=== PATIENT | female | born 1965 | race Two or more races ===

== ENCOUNTER 2021-05-28 09:39 | Outpatient (REF) | payer OTHER, SELFPAY ==
--- NOTE | ~2021-05-28 | XR_ITS ---
EXAMINATION: XR PELVIS CLINICAL INFORMATION: Hip pain COMPARISON: None TECHNIQUE: AP view of the pelvis. FINDINGS: There is prominent sclerosis with intermingled lucencies in the right femoral head, with undulation and depression of the femoral head articular surface. The findings suggestive of femoral head fracture, differential consideration include sequela of trauma, avascular necrosis with subchondral fracture. There is mild to moderate right hip arthritis. Left hip joint space is maintained. Bowel gas partially obscures the pelvic bones. In the visualized pelvic bones, no acute fractures are seen. Surgical clips noted in the abdomen or pelvis. No diastases of the SI joints. Bones are osteopenic. XR/XR pelvis 1-2V IMPRESSION: 1. Findings in the femoral head, indicative of a femoral head fracture, differential consideration include sequela of trauma, avascular necrosis with subchondral fracture. Consider further evaluation with MRI. 2. Mild to moderate right hip arthritis.
== END 2021-05-28 09:40 | disposition home or self-care (01) ==
LOC: HO.HOSX 09:39
PROVIDERS: Visit Provider Orthopaedic Surgery
DX: M87.051 Idiopathic aseptic necrosis of right femur (principal)
CPT/HCPCS: 72170; 99202

== ENCOUNTER → 2021-07-28 09:13 | Outpatient (BNVA) | payer OTHER, SELFPAY | PROVIDERS: PCP Nurse Practitioner Family; Visit Provider Orthopaedic Surgery | DX: Z13.89 Encounter for screening for other disorder (principal) ==

== ENCOUNTER → 2021-08-20 09:48 | Outpatient (BNVA) | payer OTHER, SELFPAY | PROVIDERS: PCP Family Medicine; Visit Provider Physician Assistant | DX: M87.051 Idiopathic aseptic necrosis of right femur (principal) | CPT/HCPCS: 99212 ==

== ENCOUNTER 2021-08-26 06:12 | Inpatient (IN) | payer OTHER, SELFPAY ==
--- NOTE | 2021-08-17 | ECG_ITS ---
Test Reason : PREOP Blood Pressure : / mmHG Vent. Rate : 095 BPM Atrial Rate : 095 BPM P-R Int : 154 ms QRS Dur : 072 ms QT Int : 342 ms P-R-T Axes : 044 011 053 degrees QTc Int : 429 ms Normal sinus rhythm Possible Left atrial enlargement Possible Anterior infarct , age undetermined Abnormal ECG No previous ECGs available Referred By: Shital Husain Electronically Signed By:NASIR MALONEY MD
[2021-08-17 12:37] VITALS: BP 113/70; PULSE 107; RESP 16; O2SAT 95; BMI 20.1
--- NOTE | 2021-08-17 13:03 | HO.ANESPROP2 ---
Documented by User: Shital Husain NP 08/17/21 13:58 HPI - Anesthesia Eval Consult details Narrative: 55yo F for Right Hip Total Replacement Chronic opioids Prednisone 5mg daily for RA PMFSH Active Problems Active Problems: All Active Problems (Updated 08/17/21 @ 12:20 by Jayleen Bustos RN) Avascular necrosis of bone of right hip (Acute) Past Medical History Medical History (Updated 08/17/21 @ 12:20 by Jayleen Bustos RN) Chronic pain Compression fracture of spine Depression Fibromyalgia History of latent tuberculosis Hx of hypercalcemia Hypertension Immunosuppression Interstitial lung disease Low back pain Lower extremity pain Lung nodule Migraines KAMALA (obstructive sleep apnea) Osteoporosis Positive PPD, treated Prediabetes Rheumatoid arthritis Smoker Thyroid nodule Family History Family history of problems with anesthesia: No Surgical History Surgical History (Updated 08/17/21 @ 13:34 by Jayleen Bustos RN) History of cholecystectomy Hx of colonoscopy Hx of foot surgery Hx of hysterectomy History of Problems with Anesthesia: No Social History Social History Are you a primary resident care manager to a significant other at home: No Do you presently have visiting nurse or other home services: Yes (2 [employer] - 4 hours days and 6 hours nights) Patient Tobacco Use Status: Current everyday Tobacco user Tobacco use type: Cigarette Cigarettes Per Day: 11 Years Smoked: 25 Patient Interested in Nicotine Replacement: Yes Patient Given Instructions on How to Stop Smoking: Yes Date Education Initiated: 08/17/21 Second Hand Smoke Exposure: No Use of substances other than those prescribed or required for medical reasons: No Have you been hit, kicked, punched, or otherwise hurt by someone within the past year? If so, by whom?: No Spiritual Healthcare Practices: none Yazidism Healthcare Practices: none Cultural Healthcare Practices: none Are you DNR?: No Advance Directives: No Advance Directives Information Provided: Yes Advance Directives on File: No Recently lost weight without trying: Yes How much weight loss: 34pounds or more Eating poorly because of decreased appetite: Yes Nutrition screen score: 7 Patient : No Narrative Narrative: No recent illness No chest pain. Reports occassional feelings of SOB with sleep. (Has KAMALA but does not use CPAP anymore) Meds Allergies Allergy/AdvReac Type Severity Reaction Status Date / Time Penicillins Allergy Intermediate Rash Verified 08/17/21 12:37 adhesive bandage Allergy Intermediate Rash Uncoded 08/17/21 12:37 latex Allergy Intermediate Rash Uncoded 08/17/21 12:37 Home Medications Medication Instructions Recorded Confirmed Last Taken Type aspirin 81 mg tablet,delayed 81 mg PO DAILY 05/28/21 08/17/21 Unknown History release atorvastatin 40 mg tablet (Lipitor) 40 mg PO DAILY 05/28/21 08/17/21 Unknown History docusate sodium 100 mg capsule 100 mg PO BID 05/28/21 08/17/21 Unknown History (Colace) fexofenadine 180 mg tablet 180 mg PO DAILY 05/28/21 08/17/21 Unknown History oxycodone 15 mg tablet,crush 15 mg PO Q12H 05/28/21 08/17/21 Unknown History resistant,extended release 12 hr (OxyContin) quetiapine 100 mg tablet (Seroquel) 100 mg PO DAILY 05/28/21 08/26/21 08/26/21 History sennosides 8.6 mg capsule (senna) 8.6 mg PO BID 05/28/21 08/17/21 Unknown History oxycodone 5 mg tablet 5 mg PO DAILY PRN 07/28/21 08/17/21 Unknown History albuterol sulfate 1 vial INHALATION Q6H PRN 08/17/21 08/17/21 Unknown History calcium carbonate 600 mg-vitamin 1 tab PO BID 08/17/21 08/17/21 Unknown History D3 10 mcg (400 unit) tablet dronabinol 2.5 mg capsule 2.5 mg PO BID 08/17/21 08/17/21 Unknown History fluticasone propionate 50 1 spray INTRANASAL BID 08/17/21 08/17/21 Unknown History mcg/actuation nasal spray,suspension gabapentin 300 mg capsule 300 mg PO TID 08/17/21 08/17/21 Unknown History lidocaine 5 % topical ointment TOPICAL TID 08/17/21 Unknown History mirtazapine 15 mg tablet (Remeron) 15 mg PO DAILY 08/17/21 08/17/21 Unknown History nabumetone 500 mg tablet (Relafen) 500 mg PO BID 08/17/21 08/17/21 Unknown History prednisone 5 mg tablet 1 tab PO DAILY 08/17/21 08/17/21 Unknown History Exam Exam Date and Time: August 17, 2021 1303 Height,Weight and Vital Signs: Height 5 ft Weight 46.8 kg Last Vital Signs Pulse 107 H 08/17/21 12:37 Resp 16 08/17/21 12:37 BP 113/70 08/17/21 12:37 Pulse Ox 95 08/17/21 12:37 Airway Mallampati Class: II TM Dist: >3cm Neck ROM: Full Loose/Missing/Broken Teeth: No (#7 had root canal but stable) Heart: RRR Lungs: CTAB Assessment and Plan Assessment Anesthesia Assessment: Anesthesia Plan Discussed, Smoking Cess. Discussed and PAT Visit Final Anesthetic Review Family History of Problems with Anesthesia: No History of Problems with Anesthesia: No Documented by User: Christine Pagan MD 08/26/21 07:38 [facility] Past Medical History Medical History (Updated 08/17/21 @ 12:20 by Jayleen Bustos, JOSE ELIAS) Chronic pain Compression fracture of spine Depression Fibromyalgia History of latent tuberculosis Hx of hypercalcemia Hypertension Immunosuppression Interstitial lung disease Low back pain Lower extremity pain Lung nodule Migraines KAMALA (obstructive sleep apnea) Osteoporosis Positive PPD, treated Prediabetes Rheumatoid arthritis Smoker Thyroid nodule Surgical History Surgical History (Updated 08/17/21 @ 13:34 by Jayleen Bustos, RN) History of cholecystectomy Hx of colonoscopy Hx of foot surgery Hx of hysterectomy Social History Social History Are you a primary resident care manager to a significant other at home: No Do you presently have visiting nurse or other home services: Yes (2 [employer] - 4 hours days and 6 hours nights) Patient Tobacco Use Status: Current everyday Tobacco user Tobacco use type: Cigarette Cigarettes Per Day: 11 Years Smoked: 25 Patient Interested in Nicotine Replacement: Yes Patient Given Instructions on How to Stop Smoking: Yes Date Education Initiated: 08/17/21 Second Hand Smoke Exposure: No Use of substances other than those prescribed or required for medical reasons: No Have you been hit, kicked, punched, or otherwise hurt by someone within the past year? If so, by whom?: No Spiritual Healthcare Practices: none Yazidism Healthcare Practices: none Cultural Healthcare Practices: none Are you DNR?: No Advance Directives: No Advance Directives Information Provided: Yes Advance Directives on File: No Recently lost weight without trying: Yes How much weight loss: 34pounds or more Eating poorly because of decreased appetite: Yes Nutrition screen score: 7 Patient : No Meds Allergies Allergy/AdvReac Type Severity Reaction Status Date / Time Penicillins Allergy Intermediate Rash Verified 08/17/21 12:37 adhesive bandage Allergy Intermediate Rash Uncoded 08/17/21 12:37 latex Allergy Intermediate Rash Uncoded 08/17/21 12:37 Home Medications Medication Instructions Recorded Confirmed Last Taken Type aspirin 81 mg tablet,delayed 81 mg PO DAILY 05/28/21 08/17/21 Unknown History release atorvastatin 40 mg tablet (Lipitor) 40 mg PO DAILY 05/28/21 08/17/21 Unknown History docusate sodium 100 mg capsule 100 mg PO BID 05/28/21 08/17/21 Unknown History (Colace) fexofenadine 180 mg tablet 180 mg PO DAILY 05/28/21 08/17/21 Unknown History oxycodone 15 mg tablet,crush 15 mg PO Q12H 05/28/21 08/17/21 Unknown History resistant,extended release 12 hr (OxyContin) quetiapine 100 mg tablet (Seroquel) 100 mg PO DAILY 05/28/21 08/26/21 08/26/21 History sennosides 8.6 mg capsule (senna) 8.6 mg PO BID 05/28/21 08/17/21 Unknown History oxycodone 5 mg tablet 5 mg PO DAILY PRN 07/28/21 08/17/21 Unknown History albuterol sulfate 1 vial INHALATION Q6H PRN 08/17/21 08/17/21 Unknown History calcium carbonate 600 mg-vitamin 1 tab PO BID 08/17/21 08/17/21 Unknown History D3 10 mcg (400 unit) tablet dronabinol 2.5 mg capsule 2.5 mg PO BID 08/17/21 08/17/21 Unknown History fluticasone propionate 50 1 spray INTRANASAL BID 08/17/21 08/17/21 Unknown History mcg/actuation nasal spray,suspension gabapentin 300 mg capsule 300 mg PO TID 08/17/21 08/17/21 Unknown History lidocaine 5 % topical ointment TOPICAL TID 08/17/21 Unknown History mirtazapine 15 mg tablet (Remeron) 15 mg PO DAILY 08/17/21 08/17/21 Unknown History nabumetone 500 mg tablet (Relafen) 500 mg PO BID 08/17/21 08/17/21 Unknown History prednisone 5 mg tablet 1 tab PO DAILY 08/17/21 08/17/21 Unknown History Assessment and Plan Final Anesthetic Review NPO: Yes ASA Class: III Final Preanesthetic Review: No Changes in Pt Med Stat, Meds/Allgs Chart Reviewed, Consent Obtained/Reviewed and Anes Risks/Benef Reviewed Patient Risk: Intermediate Procedure Risk: Intermediate Anesthetic Plan Anesthetic Plan: GA Disposition: Standard PACU
[2021-08-17 14:05] LABS: Hemoglobin 14.6 g/dl (12.0-16.0); Mean Corpuscular HGB Conc 31.1 g/dl (31.0-35.0); Mean Corpuscular Hemoglobin 27.6 pg (27.0-33.0); Mean Corpuscular Volume 88.8 fL (80.0-98.0); Mean Platelet Volume 10.7 fL (9.4-12.3); Platelet Count 228 X10*3/uL (160-400); Red Blood Count 5.29 X10*6/uL (4.20-5.50); Red Cell Distribution Width 14.6 % (11.0-16.0); White Blood Count 12.9 X10*3/uL (4.8-10.8)
[2021-08-17 14:37] LABS: Anion Gap 13 (12-20); Blood Urea Nitrogen 7 mg/dL (9-16); Calcium 10.6 mg/dL (8.4-10.2); Carbon Dioxide 26 mmol/L (22-29); Chloride 106 mmol/L (96-108); Creatinine Clr Calc Pharmacy 75.7; Estimated Glomerular Filt Rate > 60; Glucose Random 141 mg/dL (60-115); Potassium 4.6 mmol/L (3.3-5.1); Sodium 140 mmol/L (135-145)
[2021-08-17 15:35] LABS: MRSA Nasal PCR NEGATIVE (Negative); SA Nasal PCR NEGATIVE (Negative)
[2021-08-26] VITALS (15 sets, daily range): BP systolic 83–139; BP diastolic 55–90; PULSE 74–100; RESP 8–18; TEMP 36–37.4; O2SAT 90–100; BMI 21.1
--- NOTE | ~2021-08-26 | XR_ITS ---
EXAMINATION: XR RIGHT HIP CLINICAL INFORMATION: Right total hip arthroplasty COMPARISON: May 28, 2021 TECHNIQUE: AP view of the right hip FINDINGS: Patient is status post right total hip arthroplasty with some gas within the soft tissues. The acetabular and femoral components appear in good position on this single view. No acute fracture or dislocation is evident. XR/XR pelvis 1-2V IMPRESSION: Satisfactory single view of the right hip status post right hip total arthroplasty.
[2021-08-26 06:46] LABS: COVID-19 Test Negative (Negative)
[2021-08-26] MEDS: vancomycin HCL 1,000 MG in 0.9 % Sodium Chloride 250 ML 270 MG IV ×2 (07:19→20:11)
[2021-08-26] MEDS: Lactated Ringers 1,000 ML 100 ML IVCONT ×3 (07:19→23:14)
--- NOTE | 2021-08-26 07:31 | MHC.SHP ---
Pre-Procedural Eval Section A Date of Service: 08/26/21 The patient is an INPATIENT: No Changes since office visit: Yes Patient answered all questions; No Cold of Flu in the past 2 weeks, No New Medical Problems and No Changes in Medication The History & Physical has been completed within 30 days and I have reviewed it.: Yes Section B Chief Complaint: RTHA Allergies: Allergies Allergy/AdvReac Type Severity Reaction Status Date / Time Penicillins Allergy Intermediate Rash Verified 08/17/21 12:37 adhesive bandage Allergy Intermediate Rash Uncoded 08/17/21 12:37 latex Allergy Intermediate Rash Uncoded 08/17/21 12:37 Plan I have reviewed the history and physical and performed a pertinent physical examination on my patient. No changes have occurred unless specified.
--- NOTE | 2021-08-26 09:34 | PM.OP ---
Brief Operative Note Date of Service: 08/26/21 Pre-op diagnosis: Right hip AVN Post-op diagnosis: same Procedure: Righht TO Surgeon: Thomas Reilly MD Anesthesia: GETA and local Was an Patient Relations Coordinator used for this Procedure?: Yes Patient Relations Coordinator: Chelle Carranza Estimated blood loss (mL): 300 Tourniquet time (min): 0 IV fluids (mL): 1,000 Pathology: other Condition: stable Disposition: PACU
--- NOTE | 2021-08-26 12:04 | PHA.MEDREC ---
Pharmacy Consult ? Medication Reconciliation Pharmacy has reviewed the medication reconciliation compeleted by nursing. Rima Thompson, JefD
[2021-08-26] MEDS: oxyCODONE HCl Immed Release 5 MG TABLET 10 MG PO ×3 (13:18→23:18)
[2021-08-26 13:47] LABS: Basophils Percent Auto 0.3 % (0-2); Eosinophils Percent Auto 0.2 % (0-4); Hematocrit 36.5 % (37.0-47.0); Hemoglobin 11.3 g/dl (12.0-16.0); Imm Gran Abs Auto 0.06 X10*3/uL (0.00-0.03); Imm Gran Pct Auto 0.5 % (0.0-0.4); Lymphocytes Absolute Auto 0.7 X10*3/uL (1.2-4.9); Lymphocytes Percent Auto 6.3 % (20-40); MANUAL DIFF FLAG SCAN; Mean Corpuscular Hemoglobin 28.1 pg (27.0-33.0); Mean Corpuscular Volume 90.8 fL (80.0-98.0); Mean Platelet Volume 10.4 fL (9.4-12.3); Monocytes Absolute Auto 0.3 X10*3/uL (0.1-1.2); Monocytes Percent Auto 2.2 % (2-11); Neutrophils Absolute Auto 10.1 x10*3/uL (2.0-8.3); Neutrophils Percent Auto 90.5 % (45-73); Platelet Count 184 X10*3/uL (160-400); Red Blood Count 4.02 X10*6/uL (4.20-5.50); Red Cell Distribution Width 14.8 % (11.0-16.0); SCAN SMEAR FLAG 1; White Blood Count 11.2 X10*3/uL (4.8-10.8)
--- NOTE | 2021-08-26 14:07 | PM.IMCN ---
History of Present Illness Data of Consult Service Date: 08/26/21 Primary Care Provider: Unknown Physician HPI Reason for consult: RA 56F admitted for elective right total hip arthroplasty. Patient has history of rheumatoid arthritis on chronic prednisone. She reports feeling well post surgery, denies chest pain, shortness of breath, fever, chills. Review of Systems Review of Systems: Yes all other systems are reviewed and are negative [facility] Medical History Chronic pain Compression fracture of spine Depression Fibromyalgia History of latent tuberculosis Hx of hypercalcemia Hypertension Immunosuppression Interstitial lung disease Low back pain Lower extremity pain Lung nodule Migraines KAMALA (obstructive sleep apnea) Osteoporosis Positive PPD, treated Prediabetes Rheumatoid arthritis Smoker Thyroid nodule Family History Other No family history of cardiovascular disease Surgical History History of cholecystectomy Hx of colonoscopy Hx of foot surgery Hx of hysterectomy Social History Are you a primary career services representative to a significant other at home: No Do you presently have visiting nurse or other home services: Yes (2 [employer] - 4 hours days and 6 hours nights) Patient Tobacco Use Status: Current everyday Tobacco user Tobacco use type: Cigarette Cigarettes Per Day: 11 Years Smoked: 25 Patient Interested in Nicotine Replacement: Yes Patient Given Instructions on How to Stop Smoking: Yes Date Education Initiated: 08/17/21 Second Hand Smoke Exposure: No Use of substances other than those prescribed or required for medical reasons: No Currently Displaying Signs/Symptoms of Drug Intoxication Withdrawal: No Have you been hit, kicked, punched, or otherwise hurt by someone within the past year? If so, by whom?: No Spiritual Healthcare Practices: none Judaism Healthcare Practices: none Cultural Healthcare Practices: none Are you DNR?: No Advance Directives: No Advance Directives Information Provided: Yes Advance Directives on File: No Recently lost weight without trying: Yes How much weight loss: 34pounds or more Eating poorly because of decreased appetite: Yes Nutrition screen score: 7 Patient : No Meds Allergies Allergy/AdvReac Type Severity Reaction Status Date / Time Penicillins Allergy Intermediate Rash Verified 08/17/21 12:37 adhesive bandage Allergy Intermediate Rash Uncoded 08/17/21 12:37 latex Allergy Intermediate Rash Uncoded 08/17/21 12:37 Active Medications: Current Medications Acetaminophen (Acetaminophen 325 Mg Tablet) 650 mg PO Q6H PRN PRN Reason: Pain, Mild (Pain Scale 1-3) Albuterol Sulfate (Albuterol Sulfate (0.083%) 2.5 Mg/3 Ml Vial.Neb) mg INHALE Q6H PRN PRN Reason: wheezing Aspirin (Aspirin 325 Mg Tablet) 325 mg PO BID [facility] Celecoxib (Celecoxib 200 Mg Capsule) 200 mg PO BID [facility] Docusate Sodium (Docusate Sodium 100 Mg Capsule) 100 mg PO BID [facility] Fluticasone Propionate (Fluticasone Propionate Nasal 16 Gm [place]) 1 spray NOSTRIL-B BID [facility] Gabapentin (Gabapentin 600 Mg Tablet) 600 mg PO TID [facility] Hydromorphone HCl (Hydromorphone Hcl 0.5 Mg/0.5 Ml Syringe) 0.5 mg IVPUSH Q3H PRN; Protocol PRN Reason: Pain, Severe (Pain Scale 7-10) Lactated Ringer's (Lr) 1,000 mls @ 100 mls/hr IVCONT .Q10H [facility] Last Admin: 08/26/21 12:49 Dose: Not Given Documented by: Vancomycin HCl 1,000 mg/ (Sodium Chloride) 270 mls @ 270 mls/hr IV POSTOP ONE Stop: 08/26/21 20:59 Mirtazapine (Mirtazapine 15 Mg Tablet) 15 mg PO DAILY [facility] Non-Formulary Medication (Fexofenadine) 180 mg PO DAILY [facility] Non-Formulary Medication (Nabumetone [Relafen]) 500 mg PO BID [facility] Ondansetron HCl (Ondansetron Hcl 4 Mg/2 Ml Vial) 4 mg IVPUSH Q8H PRN PRN Reason: Nausea and Vomiting Oxycodone HCl (Oxycodone Hcl Immed Release 5 Mg Tablet) 10 mg PO Q4H PRN PRN Reason: Pain, Moderate (Pain Scale 4-6 Last Admin: 08/26/21 13:18 Dose: 10 mg Documented by: Oxycodone HCl (Oxycodone Hcl Er 10 Mg Tab.Er.12h) 20 mg PO BID [facility] Quetiapine Fumarate (Quetiapine Fumarate 100 Mg Tablet) 100 mg PO DAILY [facility] Sodium Chloride (0.9 % Sodium Chloride Flush 3 Ml Syringe) 3 ml IVFLUSH QSHIFT [facility] Last Admin: 08/26/21 13:20 Dose: Not Given Documented by: Home Medications Medication Instructions Recorded Confirmed Last Taken Type aspirin 81 mg tablet,delayed 81 mg PO DAILY 05/28/21 08/17/21 Unknown History release docusate sodium 100 mg capsule 100 mg PO BID 05/28/21 08/17/21 Unknown History (Colace) fexofenadine 180 mg tablet 180 mg PO DAILY 05/28/21 08/17/21 Unknown History oxycodone 15 mg tablet,crush 15 mg PO Q12H 05/28/21 08/17/21 Unknown History resistant,extended release 12 hr (OxyContin) quetiapine 100 mg tablet (Seroquel) 100 mg PO DAILY 05/28/21 08/26/21 08/26/21 History sennosides 8.6 mg capsule (senna) 8.6 mg PO BID 05/28/21 08/17/21 Unknown History oxycodone 5 mg tablet 5 mg PO DAILY PRN 07/28/21 08/17/21 Unknown History albuterol sulfate 1 vial INHALATION Q6H PRN 08/17/21 08/17/21 Unknown History calcium carbonate 600 mg-vitamin 1 tab PO BID 08/17/21 08/17/21 Unknown History D3 10 mcg (400 unit) tablet fluticasone propionate 50 1 spray INTRANASAL BID 08/17/21 08/17/21 Unknown History mcg/actuation nasal spray,suspension lidocaine 5 % topical ointment 1 appl TOPICAL TID 08/17/21 08/26/21 Unknown History mirtazapine 15 mg tablet (Remeron) 15 mg PO DAILY 08/17/21 08/17/21 Unknown History nabumetone 500 mg tablet (Relafen) 500 mg PO BID 08/17/21 08/17/21 Unknown History prednisone 5 mg tablet 1 tab PO DAILY 08/17/21 08/17/21 Unknown History gabapentin 600 mg tablet 1 tab PO TID 08/26/21 08/26/21 Unknown History Physical Exam Vital Signs and Narrative: Vital Signs: Last Vital Signs Temp 97.3 F 08/26/21 11:34 Pulse 78 08/26/21 12:03 Resp 16 08/26/21 12:03 BP 100/58 L 08/26/21 12:03 Pulse Ox 95 08/26/21 12:03 BMI result Body Mass Index 21.1 General: AO X 3, no acute distress Resp: CTA bilateral, no accessory muscles used CVS: S1,S2,RRR GI: soft, non tender, non distended Neuro: motor grossly intact, alert Psych: appropriate affect, appropriate insight ext: deformities of RA Results Labs CBC and Chem 7: 08/26/21 13:07 08/17/21 13:40 Labs: Laboratory Results - last 24 hr 08/26/21 08/26/21 06:10 13:07 MCV 90.8 MCH 28.1 MCHC 31.0 RDW 14.8 Plt Count 184 MPV 10.4 COVID-19 ([facility]) Negative COVID-19 Clin Com See Note Imaging Radiologist's Impressions: Impressions Pelvis X-Ray 08/26/21 11:14 IMPRESSION: Satisfactory single view of the right hip status post right hip total arthroplasty. Assessment and Plan (1) Avascular necrosis of bone of right hip: Status: Acute Plan 56F s/p elective right Fran RA would continue chronic prednisone 5mg daily gabapentin, relafen histoyr of htn no longer on bp meds mood disorder continue remeron, seroquel
[2021-08-26 14:21] LABS: SLIDE REVIEW VERIFIED
[2021-08-26] MEDS: Gabapentin 600 MG TABLET PO ×2 (14:35→20:09)
[2021-08-26] MEDS: Nicotine 21 MG PATCH.TD24 TRANSDERMA (16:19)
[2021-08-26] MEDS: oxyCODONE HCl ER 10 MG TAB.ER.12H 20 MG PO (20:09)
[2021-08-26] MEDS: Celecoxib 200 MG CAPSULE PO (20:09)
[2021-08-26] MEDS: Docusate Sodium 100 MG CAPSULE PO (20:10)
[2021-08-26] MEDS: Fluticasone Propionate Nasal 16 GM SPRAY 1 SPRAY NOSTRIL-B (20:16)
[2021-08-26] MEDS: 0.9 % Sodium Chloride Flush 3 ML SYRINGE IVFLUSH (20:18)
[2021-08-27 04:00] VITALS: BP 109/57; PULSE 85; RESP 14; TEMP 36.8; O2SAT 94
[2021-08-27 06:24] LABS: Basophils Percent Auto 0.2 % (0-2); Eosinophils Percent Auto 0.2 % (0-4); Hematocrit 29.4 % (37.0-47.0); Hemoglobin 9.3 g/dl (12.0-16.0); Imm Gran Abs Auto 0.05 X10*3/uL (0.00-0.03); Imm Gran Pct Auto 0.5 % (0.0-0.4); Lymphocytes Percent Auto 18.5 % (20-40); MANUAL DIFF FLAG SCAN; Mean Corpuscular HGB Conc 31.6 g/dl (31.0-35.0); Mean Corpuscular Hemoglobin 27.9 pg (27.0-33.0); Mean Corpuscular Volume 88.3 fL (80.0-98.0); Mean Platelet Volume 10.3 fL (9.4-12.3); Monocytes Absolute Auto 1.6 X10*3/uL (0.1-1.2); Monocytes Percent Auto 15.3 % (2-11); Neutrophils Percent Auto 65.3 % (45-73); Platelet Count 181 X10*3/uL (160-400); Red Blood Count 3.33 X10*6/uL (4.20-5.50); Red Cell Distribution Width 14.6 % (11.0-16.0); SCAN SMEAR FLAG 1; White Blood Count 10.7 X10*3/uL (4.8-10.8)
[2021-08-27 06:42] LABS: Anion Gap 11 (12-20); Blood Urea Nitrogen 9 mg/dL (9-16); Calcium 9.2 mg/dL (8.4-10.2); Carbon Dioxide 28 mmol/L (22-29); Chloride 103 mmol/L (96-108); Creatinine Clr Calc Pharmacy 84.5; Estimated Glomerular Filt Rate > 60; Glucose Fasting 103 mg/dL (60-99); Potassium 4.2 mmol/L (3.3-5.1); Sodium 138 mmol/L (135-145)
[2021-08-27 07:16] LABS: SLIDE REVIEW VERIFIED
[2021-08-27 07:23] VITALS: BP 127/76; PULSE 96; RESP 16; TEMP 36.7; O2SAT 95
[2021-08-27] MEDS: Fluticasone Propionate Nasal 16 GM SPRAY 1 SPRAY NOSTRIL-B (07:37)
[2021-08-27] MEDS: Aspirin 325 MG TABLET PO (07:37)
[2021-08-27] MEDS: Mirtazapine 15 MG TABLET PO (07:38)
[2021-08-27] MEDS: Gabapentin 600 MG TABLET PO ×2 (07:38→15:19)
[2021-08-27] MEDS: Docusate Sodium 100 MG CAPSULE PO (07:38)
[2021-08-27] MEDS: QUEtiapine Fumarate 100 MG TABLET PO (07:38)
[2021-08-27] MEDS: oxyCODONE HCl ER 10 MG TAB.ER.12H 20 MG PO (07:38)
[2021-08-27] MEDS: Loratadine 10 MG TABLET PO (07:38)
[2021-08-27] MEDS: Celecoxib 200 MG CAPSULE PO (07:38)
[2021-08-27] MEDS: Nicotine 21 MG PATCH.TD24 TRANSDERMA (07:39)
--- NOTE | 2021-08-27 09:08 | PM.PNORT ---
Subjective Subjective Date of Service: 08/27/21 Interval history: Patient laying in bed. No overnight evetns. Pain is well managed. Has gotten up multiple imes to use the restroom with no issues. No additional complaints. Physical Exam Vital Signs: Vital Signs: Last Vital Signs Temp 98.1 F 08/27/21 07:23 Pulse 96 08/27/21 07:23 Resp 16 08/27/21 07:23 BP 127/76 08/27/21 07:23 Pulse Ox 95 08/27/21 07:23 BMI result Body Mass Index 21.1 Const: General: cooperative, healthy appearing and no acute distress Resp: Effort & Inspection: normal respiratory effort and able to speak in complete sentences Cardio: Rate: regular rate Peripheral pulses: Peripheral pulses 2+ throughout GI: Palpation (GI): Soft to palpation Skin: Lesions: no lesions Rashes: no rashes Extrem: Other: Right hip new aquacel dressing applied. [place] intact. No erythema or drainage. NVI. Procedures Date of Service Date of Service: 08/27/21 Progress Note: A&P Assessment and plan (1) Avascular necrosis of bone of right hip: Status: Acute (2) S/P total hip arthroplasty: Status: Acute Assessment and Plan: Continue pain mgmnt Begin ASA for dvt ppx begin PT for RTHA Dispo planning-Pending PT eval, pain mgmnt Time Spent With Patient Time: Total time spent is greater than 50% in coordination of care (as documented) at patient's floor/unit and/or counseling patient: Quality Stroke Does the patient have a stroke diagnosis?: No VTE Prior VTE?: No VTE Risk Level:: Surgical - very high VTE Device Contraindication: N/A - Device Ordered VTE Drug Contraindication: N/A - Med Ordered
--- NOTE | 2021-08-27 09:35 | P.PNIM_ITS ---
Subjective Subjective Date of Service: 08/27/21 Interval History: cc: hip pain interval history: feeling well Cardiovascular Cardiovascular: Reports no additional cardiovascular complaints Respiratory Respiratory: Reports no additional respiratory complaints Physical Exam Vital Signs: Vital Signs: Last Vital Signs Temp 98.1 F 08/27/21 07:23 Pulse 96 08/27/21 07:23 Resp 16 08/27/21 07:23 BP 127/76 08/27/21 07:23 Pulse Ox 95 08/27/21 07:23 BMI result Body Mass Index 21.1 General: AO X 3, no acute distress Resp: CTA bilateral, no accessory muscles used CVS: S1,S2,RRR GI: soft, non tender, non distended Neuro: motor grossly intact, alert Psych: appropriate affect, appropriate insight Objective Data Active Medications Acetaminophen (Acetaminophen 325 Mg Tablet) 650 mg PO Q6H PRN PRN Reason: Pain, Mild (Pain Scale 1-3) Albuterol Sulfate (Albuterol Sulfate (0.083%) 2.5 Mg/3 Ml Vial.Neb) 2.5 mg INHALE Q6H PRN PRN Reason: wheezing Aspirin (Aspirin 325 Mg Tablet) 325 mg PO BID [facility] Last Admin: 08/27/21 07:37 Dose: 325 mg Documented by: PARTH Celecoxib (Celecoxib 200 Mg Capsule) 200 mg PO BID [facility] Last Admin: 08/27/21 07:38 Dose: 200 mg Documented by: PARTH Docusate Sodium (Docusate Sodium 100 Mg Capsule) 100 mg PO BID [facility] Last Admin: 08/27/21 07:38 Dose: 100 mg Documented by: PARTH Fluticasone Propionate (Fluticasone Propionate Nasal 16 Gm [place]) 1 spray NOSTRIL-B BID [facility] Last Admin: 08/27/21 07:37 Dose: 1 spray Documented by: PARTH Gabapentin (Gabapentin 600 Mg Tablet) 600 mg PO TID [facility] Last Admin: 08/27/21 07:38 Dose: 600 mg Documented by: PARTH Hydromorphone HCl (Hydromorphone Hcl 0.5 Mg/0.5 Ml Syringe) 0.5 mg IVPUSH Q3H P RN; Protocol PRN Reason: Pain, Severe (Pain Scale 7-10) Loratadine (Loratadine 10 Mg Tablet) 10 mg PO DAILY [facility] Last Admin: 08/27/21 07:38 Dose: 10 mg Documented by: PARTH Mirtazapine (Mirtazapine 15 Mg Tablet) 15 mg PO DAILY [facility] Last Admin: 08/27/21 07:38 Dose: 15 mg Documented by: PARTH Nicotine (Nicotine 21 Mg Patch.Td24) 21 mg TRANSDERMA DAILY [facility] Last Admin: 08/27/21 07:39 Dose: 21 mg Documented by: PARTH Ondansetron HCl (Ondansetron Hcl 4 Mg/2 Ml Vial) 4 mg IVPUSH Q8H PRN PRN Reason: Nausea and Vomiting Oxycodone HCl (Oxycodone Hcl Immed Release 5 Mg Tablet) 10 mg PO Q4H PRN PRN Reason: Pain, Moderate (Pain Scale 4-6 Last Admin: 08/26/21 23:18 Dose: 10 mg Documented by: MORRINL Oxycodone HCl (Oxycodone Hcl Er 10 Mg Tab.Er.12h) 20 mg PO BID [facility] Last Admin: 08/27/21 07:38 Dose: 20 mg Documented by: PARTH Quetiapine Fumarate (Quetiapine Fumarate 100 Mg Tablet) 100 mg PO DAILY [facility] Last Admin: 08/27/21 07:38 Dose: 100 mg Documented by: PARTH Sodium Chloride (0.9 % Sodium Chloride Flush 3 Ml Syringe) 3 ml IVFLUSH QSHIFT [facility] Last Admin: 08/27/21 07:31 Dose: Not Given Documented by: PARTH Non-Admin Reason: IV Running Labs CBC & Chem 7: 08/27/21 05:26 08/27/21 05:26 Labs: Laboratory Results - last 24 hr 08/26/21 08/27/21 08/27/21 13:07 05:26 05:26 MCV 90.8 88.3 MCH 28.1 27.9 MCHC 31.0 31.6 RDW 14.8 14.6 Plt Count 184 181 MPV 10.4 10.3 Immature Gran % (Auto) 0.5 H 0.5 H Neut % (Auto) 90.5 H 65.3 Lymph % (Auto) 6.3 L 18.5 L [place] % (Auto) 2.2 15.3 H Eos % (Auto) 0.2 0.2 Baso % (Auto) 0.3 0.2 Lymph # (Auto) 0.7 L 2.0 Howard # (Auto) 0.3 1.6 H Eos # (Auto) 0.0 0.0 Baso # (Auto) 0.0 0.0 Abs Immat Gran (auto) 0.06 H 0.05 H Absolute Neuts (auto) 10.1 H 7.0 Absolute Nucleated RBC 0.000 0.000 Nucleated RBC % (auto) 0.0 0.0 Smear Tech's Comments VERIFIED VERIFIED Anion Gap 11 L Estim Creat Clear Calc 84.5 Estimated GFR > 60 Fasting Glucose 103 H Calcium 9.2 D Assessment and Plan (1) S/P total hip arthroplasty: Status: Acute Plan 56F s/p elective right Fran RA chronic prednisone 5mg daily gabapentin, relafen history of htn no longer on bp meds bp controlled mood disorder continue remeron, seroquel appears medically stable, will sign off, please recall if needed Quality Stroke Does the patient have a stroke diagnosis?: No VTE Prior VTE?: No VTE Risk Level:: Surgical - very high VTE Device Contraindication: N/A - Device Ordered VTE Drug Contraindication: N/A - Med Ordered
--- NOTE | 2021-08-27 10:09 | MHC.CM.PN ---
PATIENT LIVES ALONE. 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 PCP IS AT [address] [place] [address] IN [facility] ([facility]) SHE HAS BEEN COVID VACCINATED X 3 WITH MODERNA BUT DOES NOT RECALL THE DATES. PATIENT IS AWARE THAT CASE MANAGEMENT IS ASSISITING WITH TRYING TO SECURE A VNA SERVICE FOR HOME P.T. PATIENT HAS HNE PRODUCT, AND LOCAL NETWORK PROVIDER DO NOT ACCEPT PATIENT'S DAUGHTER/HCP WILL PROVIDE TRANSPORT HOME TODAY AFTER 1700
[2021-08-27 10:16] VITALS: BP 127/76; PULSE 96; O2SAT 95
--- NOTE | 2021-08-27 10:56 | HO.POSTANES ---
Post Anesthesia Evaluation Post Anesthesia Evaluation Vital Signs: Vital Signs Temp Pulse Resp BP Pulse Ox 08/27/21 10:16 96 127/76 95 08/27/21 07:23 98.1 F 96 16 127/76 95 08/27/21 04:00 98.2 F 85 14 109/57 L 94 08/26/21 23:39 98.7 F 98 14 107/64 90 L Anesthesia: General Mental Status: Awake Pain Control: Satisfactory Nausea/Vomiting: None Hydration: Adequate Anesthesia-Related Issues: No Anes. Related Issues
[2021-08-27 12:00] VITALS: BP 108/66; PULSE 97; RESP 15; TEMP 36.7; O2SAT 92
--- NOTE | 2021-08-27 15:00 | MHC.CM.PN ---
HOME - SELF CARE CASE MANAGEMENT UNABLE TO SECURE VNA SERVICES DESPITE ATTEMPTS PATIENT HAS MANAGER NIGHT SERVICES (DAY AND NIGHT) FOR SUPPORT.
[2021-08-27 15:13] VITALS: BP 86/54; PULSE 99; RESP 16; TEMP 36.7; O2SAT 100
[2021-08-27] MEDS: 0.9 % Sodium Chloride Flush 3 ML SYRINGE IVFLUSH (15:19)
[2021-08-27] MEDS: oxyCODONE HCl Immed Release 5 MG TABLET 10 MG PO (15:19)
--- NOTE | 2021-08-27 15:24 | P.DS_ITS ---
DS: Providers Provider Date of Service: 08/27/21 Date of admission: 08/26/21 06:12 Primary care physician: Unknown Physician Consults: 08/26/21 12:25 Consult to Hospitalist Routine Consulting Provider: Hospitalist Reason For Exam: routine medical management DS: Diagnosis Discharge Diagnosis (1) S/P total hip arthroplasty: Status: Acute DS: Summary Hospital Course Hospital Course: The patient underwent a successful right total hip arthroplasty, was transferred to PACU and then to the floor to recover. During their stay, their vitals were stable, afebrile at 98.1 . Labs were unremarkable, H/H 9.3/29.4. POD 1 she was started on ASA for DVT ppx, they also received PT/OT services twice a day. Prior to discharge, their dressing was change, incision clean dry and intact, new Aquacel dressing applied and the plan was to be discharged home with vna. Time Spent with Patient Time attestation: Total time spent providing and/or coordinating discharge services: Discharge coordination time: Less than 30 minutes Quality: Safe Use of Opioids Does Pt have an Active Cancer Diagnosis on the Problem List?: No Quality: Stroke Does the patient have a stroke diagnosis?: No Physical Exam Vital Signs: Vital Signs: Last Vital Signs Temp 98.1 F 08/27/21 15:13 Pulse 99 08/27/21 15:13 Resp 16 08/27/21 15:13 BP 86/54 L 08/27/21 15:13 Pulse Ox 100 08/27/21 15:13 BMI result Body Mass Index 21.1 Const: General: cooperative, healthy appearing and no acute distress Resp: Effort & Inspection: normal respiratory effort and able to speak in complete sentences Cardio: Rate: regular rate Peripheral pulses: Peripheral pulses 2+ throughout GI: Palpation (GI): Soft to palpation Skin: General skin exam: no rashes or lesions noted Extrem: Other: incision clean dry and intact. [place] intact. No erythema or effusion. Calf supple nontender. Neurovascularly intact. DS: Data Data Completed and Pending Pending studies at discharge: Pending at discharge 08/26/21 09:14 Surgical [PTH] Routine Labs on day of discharge: Laboratory Results - last 24 hr 08/27/21 08/27/21 05:26 05:26 WBC 10.7 RBC 3.33 L Hgb 9.3 L Hct 29.4 L MCV 88.3 MCH 27.9 MCHC 31.6 RDW 14.6 Plt Count 181 MPV 10.3 Immature Gran % (Auto) 0.5 H Neut % (Auto) 65.3 Lymph % (Auto) 18.5 L [place] % (Auto) 15.3 H Eos % (Auto) 0.2 Baso % (Auto) 0.2 Lymph # (Auto) 2.0 [place] # (Auto) 1.6 H Eos # (Auto) 0.0 Baso # (Auto) 0.0 Abs Immat Gran (auto) 0.05 H Absolute Neuts (auto) 7.0 Absolute Nucleated RBC 0.000 Nucleated RBC % (auto) 0.0 Smear Tech's Comments VERIFIED Sodium 138 Potassium 4.2 Chloride 103 Carbon Dioxide 28 Anion Gap 11 L BUN 9 Creatinine 0.54 Estim Creat Clear Calc 84.5 Estimated GFR > 60 Fasting Glucose 103 H Calcium 9.2 D Discharge Plan Discharge Patient Disposition: Home, Self-Care Discharge Diagnosis: rt kellie Referrals: Chelle Carranza PA-C [Physician Heel Cementer [employer]] - 2 Weeks (09/10/21 12:30 [facility] Chelle Carranza PA-C) Discharge Medications: New oxycodone 10 mg tablet 10 mg PO Q4H PRN (Reason: Pain, Moderate (Pain Scale 4-6) 7 Days Qty: 42 0RF acetaminophen 325 mg Tablet 650 mg PO Q6H PRN (Reason: Pain, Mild (Pain Scale 1-3)) 30 Days Qty: 240 0RF aspirin 325 mg Tablet 325 mg PO BID 42 Days Qty: 84 0RF celecoxib 200 mg Capsule 200 mg PO BID 30 Days Qty: 60 1RF Continued mirtazapine [Remeron] 15 mg Tablet 15 mg PO DAILY 0RF albuterol sulfate 2.5 mg /3 mL (0.083 %) solution for nebulization 1 vial inhalation Q6H PRN (Reason: wheezing) 0RF fluticasone propionate 50 mcg/actuation spray,suspension 1 spray intranasal BID 0RF calcium carbonate-vitamin D3 600 mg-10 mcg (400 unit) tablet 1 tab PO BID 0RF lidocaine 5 % ointment 1 appl topical TID 0RF prednisone 5 mg tablet 1 tab PO DAILY 0RF gabapentin 600 mg tablet 1 tab PO TID 0RF quetiapine [Seroquel] 100 mg tablet 100 mg PO DAILY 0RF fexofenadine 180 mg tablet 180 mg PO DAILY 0RF senna 8.6 mg capsule 8.6 mg PO BID 0RF docusate sodium [Colace] 100 mg capsule 100 mg PO BID 0RF (DME) walker [facility] See Rx Instructions .ROUTE .MEDSUPPLY Qty: 1 0RF Rx Instructions: Folding front wheeled walker Discontinued nabumetone [Relafen] 500 mg Tablet 500 mg PO BID 0RF oxycodone [OxyContin] 15 mg tablet,oral only,ext.rel.12 hr 15 mg PO Q12H 0RF aspirin 81 mg tablet,delayed release (DR/EC) 81 mg PO DAILY 0RF oxycodone 5 mg tablet 5 mg PO DAILY PRN (Reason: severe pain) 0RF Discharge Orders: Discharge Order (Routine); Ordered 08/27/21 Ordered By: Marvel Carroll Diet: regular diet Activity on Discharge: Use cane or walker Stand Alone Forms: Patient Portal Discharge page Care Plan Goals: Restore function of joint Health Concerns: none Plan of Treatment: Physical Therapy Pain management DVT prophylaxis Assessment: * Physical Therapy for Total hip arthroplasty: wbat, posterior precautions, gait training, ROM, strength * Limit stair climbing * No showering, no tub bath-keep dressing clean, dry and intact * No driving x6 weeks * Continue Aspirin twice a day x 6 weeks * Follow up with [facility] [place] [facility] weeks: * --you will also have your first out patient PT eval on the day of your post op appt-so please plan on being in the office that day for an extended period of time. Discharge Date/Time: 08/27/21 18:42
--- NOTE | 2021-09-02 09:55 | P.OP_ITS ---
Operative Note Operative Note Date of Service: 08/26/21 Narrative: Date of Service: 08/26/21 Pre-op diagnosis: Right hip AVN Post-op diagnosis: same Procedure: Right TO Implants: [place] Trident2 48mm cup with 22+0/38 MDM. Accolade2#5 127 deg stem Surgeon: Thomas Reilly MD Anesthesia: GETA and local Was an Clinical Pharmacy Specialist used for this Procedure?: Yes Clinical Pharmacy Specialist: Chelle Carranza Estimated blood loss (mL): 300 Tourniquet time (min): 0 IV fluids (mL): 1,000 Pathology: other Condition: stable Disposition: PACU Procedure in detail: Patient was brought into the operating room and placed in the left lateral decubitus position. All bony prominences were well padded and the limb was prepped and draped in standard sterile fashion. Time-out was called to identify proper site procedure proper surgeon IV antibiotics and 1 g of transaxemic acid were administered. I began by making a curvilinear incision over the posterolateral aspect of the greater trochanter. Dissection was taken down to the tensor fascia which was incised in line with the incision and a Charnley retractor was placed. Cautery was used to maintain hemostasis. A werewolf device was also used. The hip was internally rotated and the external rotators were identified. The vessels were cauterized and a full-thickness capsular/external rotator layer was developed starting just proximal to the piriformis. This layer was tagged and a dull Hohmann retractor was placed underneath the neck in the hip was dislocated. The head was deformed c/w AVN. A neck cut was made 1 cm proximal to the lesser trochanter and the head and neck were removed and measured at 44mm on the back table. I started with a 40mm reamer and se quentially reamed up to a size 48 and mpacted in a 48 mm cup in 45 incloination and 20 deg version. Given the small diameter of her acetabulum I elected to place an MDM liner. This was impacted in place. I then turned my attention to the femur. I identified the piriformis insertion and used this as a starting point for my yvrose cutter. The medius tendon was protected with a Hibs retractor. I then used a Charnley awl to identify the canal and a curved curette to remove the lateral bone. I irrigated copiously. I then sequentially broached in the patient's natural version to a size #5 and placed my trial implants. Using a trail head I took the hip through range of motion. I was very satisfied with the stability and length. Therefore I removed all instrumentation and copiously irrigated. I placed my final femoral implant and again took the hip through range of motion and was satisfied with the stability and length using a +0. A + 0 22/38 MDM head was impacted in place. I then irrigated for 3 minutes with iodine and placed 1 g of local tranaxemic acid. I then performed a capsular closure with 2.0 fiberwire, Moon's fascia with 0 Vicryl, subcuticular with 2-0 Vicryl and the skin with andrea. Patient was placed into a sterile dressing. Radiographs were obtained at the completion of the case and I was satisfied with the component position. Patient was extubated brought to the recovery room in stable condition. There were no known complications.
== END 2021-08-27 18:42 | disposition home or self-care (01) | DRG 324 ==
LOC: HO.SSSA 06:54 → HO.S3 11:14
PROVIDERS: Nurse Practitioner; Physician Assistant; Admitting Provider Orthopaedic Surgery; PCP Internal Medicine; Visit Provider Orthopaedic Surgery
PROC: 0SR90JA Replacement of Right Hip Joint with Synthetic Substitute, Uncemented, Open Approach (ICD-10-PCS; CPT 27130; principal; 2021-08-26 07:30)
DX: M87.051 Idiopathic aseptic necrosis of right femur (principal); F17.210 Nicotine dependence, cigarettes, uncomplicated; M06.9 Rheumatoid arthritis, unspecified; F32.A Depression, unspecified; I10 Essential (primary) hypertension; Z20.822 Contact with and (suspected) exposure to COVID-19; Z86.11 Personal history of tuberculosis; Z71.6 Tobacco abuse counseling; Z91.040 Latex allergy status; Z88.0 Allergy status to penicillin; Z79.51 Long term (current) use of inhaled steroids; Z79.52 Long term (current) use of systemic steroids; Z79.899 Other long term (current) drug therapy
CPT/HCPCS: 36415; 72170; 80048; 85025; 85027; 86850; 86900; 86901; 87635; 87640; 87641; 88304; 88311; 88312; 93005; 97110; 97116; 97162; 97166; 97530; C1776; J0131; J1100; J1170; J2250; J2370; J2405; J2930; J3010; J3370

== ENCOUNTER → 2021-09-10 12:26 | Outpatient (BNVA) | payer OTHER, SELFPAY | PROVIDERS: PCP Internal Medicine; Visit Provider Physician Assistant | DX: M87.051 Idiopathic aseptic necrosis of right femur (principal) | CPT/HCPCS: 99212 ==

== ENCOUNTER 2021-10-09 07:31 | Outpatient (REF) | payer OTHER, SELFPAY ==
--- NOTE | ~2021-10-09 | XR_ITS ---
EXAMINATION: XR PELVIS CLINICAL INFORMATION: Pain. Hip replacement. COMPARISON: Previous x-ray August 2021 TECHNIQUE: AP view of the pelvis. FINDINGS: There is a right hip replacement in satisfactory position. No fracture, dislocation or x-ray evidence of loosening is seen. Bones of the pelvis and left hip are unremarkable. XR/XR pelvis 1-2V IMPRESSION: Satisfactory appearance of right hip replacement.
== END 2021-10-09 07:32 | disposition home or self-care (01) ==
LOC: HO.HOSX 07:31
PROVIDERS: Visit Provider Physician Assistant
DX: M25.559 Pain in unspecified hip (principal)
CPT/HCPCS: 72170